=== PATIENT | male | born 1955 | race Caucasian/White ===

== ENCOUNTER 2016-05-25 13:26 | Inpatient (IN) | payer MEDICAID, OTHER ==
[2016-05-25] MEDS ORDERED: NS 0.9% 1000 ML* 3,000 ML IV ONE (13:38)
[2016-05-25] MEDS ORDERED: Albuterol/Ipratropium NEB.SOL* Albuterol 2.5 MG/Ipratropium 0.5 MG 3 ML INH ONE (13:42)
[2016-05-25] MEDS ORDERED: methylPREDNISolone 125 MG* 2 ML VIAL IV ONE (13:43)
--- NOTE | 2016-05-25 14:18 | RAD ---
INDICATION: Pneumonia. Short of breath. COMPARISON: December 13, 2015 TECHNIQUE: PA and lateral dual-energy views were obtained. FINDINGS: Bones/Soft Tissues: There are no acute bony findings. Cardiomediastinal: The cardiomediastinal silhouette is normal. Lungs: There is patchy infiltrative change in the right lower lobe. The remaining lung tomas are clear Pleura: There are no pleural effusions. Other: None IMPRESSION: PATCHY INFILTRATE RIGHT LOWER LOBE. SUGGEST FOLLOW-UP
[2016-05-25 14:29] LABS: FIO2 4
[2016-05-25 14:29] LABS: Hematocrit 47 % (42-52); Hemoglobin 15.5 g/dl (14.0-18.0); Mean Corpuscular HGB Conc 33 g/dl (31-36); Mean Corpuscular Hemoglobin 30 pg (27-31); Mean Corpuscular Volume 90 fL (80-94); Mean Platelet Volume 8 um3 (7.4-10.4); Red Blood Count 5.22 10^6/ul (4.0-5.4); Red Cell Distribution Width 14 % (10.5-15); White Blood Count 22.7 10^3/ul (3.5-10.8)
--- NOTE | 2016-05-25 14:31 | RAD ---
INDICATION: Altered mental status, syncope. COMPARISON: Comparison is made with a prior CT of the brain from May 18, 2014. TECHNIQUE: Contiguous axial sections of the brain were obtained from the skull base to the vertex without contrast. FINDINGS: The ventricles, cisterns and sulci are within normal limits. No significant focal abnormality or mass effect is seen. There is no evidence for hemorrhage. No significant focal osseous abnormality is seen. There is mild mucosal thickening present within both maxillary sinuses. The visualized portion of the paranasal sinuses and mastoid air cells otherwise appear clear. IMPRESSION: NO EVIDENCE FOR GROSS ACUTE INFARCT, MASS EFFECT OR HEMORRHAGE.
[2016-05-25] MEDS ORDERED: cefTRIAXone(*) 1 GM in NS 0.9% 50 ML* 50 ML IVPB ONE (14:39)
[2016-05-25] MEDS ORDERED: Azithromycin IV(*) 500 MG in NS 0.9% 250 ML* 250 ML IVPB ONE (14:40)
[2016-05-25 14:41] LABS: PCO2 Arterial 58 mmHg (35-45)
[2016-05-25 14:45] LABS: ALT 12 U/L (7-52); AST 15 U/L (13-39); Albumin 4.1 g/dL (3.2-5.2); Alkaline Phosphatase 66 U/L (34-104); Anion Gap 8 mmol/L (2-11); BUN/Creatinine Ratio 8.7 (8-20); Blood Urea Nitrogen 14 mg/dL (6-24); CO2 Carbon Dioxide 26 mmol/L (22-32); Calcium 9.2 mg/dL (8.6-10.3); Chloride 100 mmol/L (101-111); Creatine Kinase 89 U/L (10-223); EGFR African American 56.8 (>60); EGFR Non-African American 44.1 (>60); Globulin 3.5 g/dL (2-4); Glucose 230 mg/dL (70-100); Magnesium 2.1 mg/dL (1.9-2.7); Sodium 134 mmol/L (133-145); Total Protein 7.6 g/dL (6.4-8.9)
[2016-05-25 14:46] LABS: Troponin I 0.02 ng/mL (<0.04)
[2016-05-25 15:10] LABS: Acetaminophen < 15 mcg/mL; Alcohol < 10 mg/dL (<10); Salicylate < 2.50 mg/dL (<30)
[2016-05-25 15:17] LABS: TSH (Thyroid Stimulating Horm) 6.33 mcIU/mL (0.34-5.60)
[2016-05-25] MEDS ORDERED: Naloxone* 0.4 MG/ML 1 ML VIAL IV PUSH ONE (15:43)
[2016-05-25] MEDS ORDERED: Naloxone* 0.4 MG/ML 10 ML VIAL ONE (15:45)
[2016-05-25] MEDS ORDERED: Naloxone* 0.4 MG/ML 1 ML VIAL IV PUSH PRN (15:58)
--- NOTE | 2016-05-25 16:09 | ED ---
Eldon Brito Adam, scribed for Jakob Gavin MD on 05/25/16 at 1400 . Complex/Multi-Sys Presentation - HPI Summary HPI Summary: Pt is a 60 year old male presenting with SOB and a possible episode of syncope. EMS reportedly gave narcan x2 and albuterol. Pt states that he was released from senior living today and smoked his first cigarette in years. Afterwards he felt dizzy and thinks he may have passed out. He is unsure who called the ambulance though (possibly his brother) and he states that he does not know the reason why. He currently c/o SOB and he also reports intermittent cough and urgency to urinate. He denies fever, chills, and CP. Pt has PMHx of asthma and COPD. He is not on home o2 but he uses a "puffer." He also has a Hx of HTN and takes Lisinopril and Atenolol. He states that he was receiving his medications and breathing treatments in senior living. He states that he took his BP medications when he got out of senior living today but he denies taking any narcotics. He denies overdosing on pain pills. Pt has been on methodone in the past through Dr. Pittman. - History Of Current Complaint Chief Complaint: EDOverdose Time Seen by Provider: 05/25/16 13:29 Hx Obtained From: Patient Onset/Duration: Gradual Onset, Lasting Hours, Still Present Timing: Constant Severity Currently: Moderate Severity Initially: Moderate Aggravating Factor(s): Smoking first cigarette in years Alleviating Factor(s): Nothing Associated Signs And Symptoms: Positive: SOB, Cough, Other - Urgency to urinate. Negative: Chest Pain, Fever - Allergies/Home Medications Allergies/Adverse Reactions: Allergies Allergy/AdvReac Type Severity Reaction Status Date / Time No Known Allergies Allergy Verified 12/25/15 11:44 PMH/Surg Hx/FS Hx/Imm Hx Endocrine/Hematology History: Denies: Hx Diabetes, Hx Thyroid Disease Cardiovascular History: Reports: Hx Hypertension Denies: Hx Congestive Heart Failure Respiratory History: Reports: Hx Asthma, Hx Chronic Obstructive Pulmonary Disease (COPD) - Emphysema Denies: Other Respiratory Problems/Disorders GI History: Denies: Hx Ulcer, Other GI Disorders History: Denies: Hx Renal Disease, Other Problems/Disorders - Surgical History Surgery Procedure, Year, and Place: Cataract, bilater eyes May 2013. ABDOMINAL STABBING- exploratory sx - Immunization History Date of Tetanus Vaccine: up to date per pt Infectious Disease History: No Infectious Disease History: Reports: Hx Hepatitis - HEP C Denies: Hx Human Immunodeficiency Virus (HIV), History Other Infectious Disease, Traveled Outside the [place] in Last 30 Days - Family History Known Family History: Positive: None Family History: No cardiovascular issues in family - Social History Occupation: Disabled Lives: With Family - Sister Alcohol Use: None Hx Substance Use: Yes Substance Use Comment - Amount & Last Used: HX OF HEROIN, last use 2014 Hx Tobacco Use: Yes Smoking Status (MU): Current Every Day Smoker Type: Cigarettes Amount Used/How Often: 1/2 PPD Length of Time of Smoking/Using Tobacco: 40+ YEARS Have You Smoked in the Last Year: Yes Review of Systems Negative: Fever, Chills Negative: Chest Pain Positive: Shortness Of Breath, Cough Positive: urgency Neurological: Other - Dizziness Positive: Syncope All Other Systems Reviewed And Are Negative: Yes Physical Exam - Summary Physical Exam Summary: The patient appears cyanotic and is not able to answer questions well. The skin is cyanotic and mottled. Skin is cool to the touch. No diaphoresis. HEENT: The head is normocephalic and atraumatic. The pupils are equal and reactive. The conjunctivae are clear and without drainage. Nares are patent and without drainage. Mouth reveals dry oral mucosa. The external ears are intact. The ear canals are patent and without drainage. The tympanic membranes are intact. Neck is supple with full range of motion and non-tender. There are no carotid bruits. There is no neck vein distension. Respiratory: Diminished breath sounds throughout. Rhonchi, wheezing. Hypoxic. Cardiovascular: Heart is regular rate and rhythm. There is no murmur or rub auscultated. There is no peripheral edema and pulses are symmetrical and equal. Abdomen: The abdomen is soft and non-tender. There are normal bowel sounds heard in all four quadrants and there is no organomegaly palpated. Musculoskeletal: There is no back pain noted. Extremities are non-tender with full range of motion. There is good capillary refill. There is no peripheral edema or calf tenderness elicited. Neurological: Patient is alert and oriented to person, place and time but not able to answer questions well. The patient has symmetrical motor strength in all four extremities. Cranial nerves are grossly intact. Deep tendon reflexes are symmetrical and equal in all four extremities. Psychiatric: The patient has an appropriate affect and does not exhibit any anxiety or depression. Triage Information Reviewed: Yes Vital Signs On Initial Exam: Initial Vitals Temp Pulse Resp BP Pulse Ox 96.8 F 122 28 154/99 87 05/25/16 13:28 05/25/16 13:28 05/25/16 13:28 05/25/16 13:28 05/25/16 13:28 Vital Signs Reviewed: Yes Diagnostics - Vital Signs Vital Signs Temp Pulse Resp BP Pulse Ox 05/25/16 13:28 96.8 F 122 28 154/99 87 - Laboratory Lab Results: Lab Results 05/25/16 05/25/16 05/25/16 Range/Units 14:20 14:20 14:20 WBC 22.7 H (3.5-10.8) 10^3/ul RBC 5.22 (4.0-5.4) 10^6/ul Hgb 15.5 (14.0-18.0) g/dl Hct 47 (42-52) % MCV 90 (80-94) fL MCH 30 (27-31) pg MCHC 33 (31-36) g/dl RDW 14 (10.5-15) % Plt Count 207 (150-450) 10^3/ul MPV 8 (7.4-10.4) um3 Neut % (Auto) 88.2 H (38-83) % Lymph % (Auto) 8.0 L (25-47) % [place] % (Auto) 2.7 (1-9) % Eos % (Auto) 0.7 (0-6) % Baso % (Auto) 0.4 (0-2) % Absolute Neuts (auto) 20.0 H (1.5-7.7) 10^3/ul Absolute Lymphs (auto) 1.8 (1.0-4.8) 10^3/ul Absolute Monos (auto) 0.6 (0-0.8) 10^3/ul Absolute Eos (auto) 0.2 (0-0.6) 10^3/ul Absolute Basos (auto) 0.1 (0-0.2) 10^3/ul Absolute Nucleated RBC 0.01 10^3/ul Nucleated RBC % 0 INR (Anticoag Therapy) (0.89-1.11) Patient Temperature ABG pH (7.35-7.45) ABG pCO2 (35-45) mmHg ABG pO2 (80-100) mmHg ABG HCO3 (19-31) mmol/L ABG O2 Saturation (95-98) % ABG Base Excess (-2.0-2.0) Respiration Rate O2 Delivery Device Ventilator Type Vent Mode FiO2 Inspiratory Time PEEP Pressure Support Pressure Control EPAP IPAP BiPAP Sodium 134 (133-145) mmol/L Potassium 5.0 (3.5-5.0) mmol/L Chloride 100 L (101-111) mmol/L Carbon Dioxide 26 (22-32) mmol/L Anion Gap 8 (2-11) mmol/L BUN 14 (6-24) mg/dL Creatinine 1.61 H (0.67-1.17) mg/dL Est GFR ( Amer) 56.8 (>60) Est GFR (Non-Af Amer) 44.1 (>60) BUN/Creatinine Ratio 8.7 (8-20) Glucose 230 H (70-100) mg/dL Lactic Acid 3.4 H* (0.5-2.0) mmol/L Calcium 9.2 (8.6-10.3) mg/dL Magnesium 2.1 (1.9-2.7) mg/dL Total Bilirubin 0.40 (0.2-1.0) mg/dL AST 15 (13-39) U/L ALT 12 (7-52) U/L Alkaline Phosphatase 66 (34-104) U/L Total Creatine Kinase 89 (10-223) U/L Troponin I 0.02 (<0.04) ng/mL B-Natriuretic Peptide ( - 100) pg/mL Total Protein 7.6 (6.4-8.9) g/dL Albumin 4.1 (3.2-5.2) g/dL Globulin 3.5 (2-4) g/dL Albumin/Globulin Ratio 1.2 (1-3) TSH 6.33 H (0.34-5.60) mcIU/mL Salicylates < 2.50 (<30) mg/dL Acetaminophen < 15 mcg/mL Serum Alcohol < 10 (<10) mg/dL 02/17/17 02/17/17 02/17/17 Range/Units 14:20 14:20 14:25 WBC (3.5-10.8) 10^3/ul RBC (4.0-5.4) 10^6/ul Hgb (14.0-18.0) g/dl Hct (42-52) % MCV (80-94) fL MCH (27-31) pg MCHC (31-36) g/dl RDW (10.5-15) % Plt Count (150-450) 10^3/ul MPV (7.4-10.4) um3 Neut % (Auto) (38-83) % Lymph % (Auto) (25-47) % [place] % (Auto) (1-9) % Eos % (Auto) (0-6) % Baso % (Auto) (0-2) % Absolute Neuts (auto) (1.5-7.7) 10^3/ul Absolute Lymphs (auto) (1.0-4.8) 10^3/ul Absolute Monos (auto) (0-0.8) 10^3/ul Absolute Eos (auto) (0-0.6) 10^3/ul Absolute Basos (auto) (0-0.2) 10^3/ul Absolute Nucleated RBC 10^3/ul Nucleated RBC % INR (Anticoag Therapy) 1.26 H (0.89-1.11) Patient Temperature Not Reportable ABG pH 7.23 L (7.35-7.45) ABG pCO2 58 H (35-45) mmHg ABG pO2 35 L* (80-100) mmHg ABG HCO3 20.3 (19-31) mmol/L ABG O2 Saturation 67.3 L (95-98) % ABG Base Excess -4.5 L (-2.0-2.0) Respiration Rate Not Reportable O2 Delivery Device Oxymask Ventilator Type Not Reportable Vent Mode Not Reportable FiO2 4 Inspiratory Time Not Reportable PEEP Not Reportable Pressure Support Not Reportable Pressure Control Not Reportable EPAP Not Reportable IPAP Not Reportable BiPAP Not Reportable Sodium (133-145) mmol/L Potassium (3.5-5.0) mmol/L Chloride (101-111) mmol/L Carbon Dioxide (22-32) mmol/L Anion Gap (2-11) mmol/L BUN (6-24) mg/dL Creatinine (0.67-1.17) mg/dL Est GFR ( Amer) (>60) Est GFR (Non-Af Amer) (>60) BUN/Creatinine Ratio (8-20) Glucose (70-100) mg/dL Lactic Acid (0.5-2.0) mmol/L Calcium (8.6-10.3) mg/dL Magnesium (1.9-2.7) mg/dL Total Bilirubin (0.2-1.0) mg/dL AST (13-39) U/L ALT (7-52) U/L Alkaline Phosphatase (34-104) U/L Total Creatine Kinase (10-223) U/L Troponin I (<0.04) ng/mL B-Natriuretic Peptide 78 ( - 100) pg/mL Total Protein (6.4-8.9) g/dL Albumin (3.2-5.2) g/dL Globulin (2-4) g/dL Albumin/Globulin Ratio (1-3) TSH (0.34-5.60) mcIU/mL Salicylates (<30) mg/dL Acetaminophen mcg/mL Serum Alcohol (<10) mg/dL Result Diagrams: 05/25/16 14:20 05/25/16 14:20 Lab Statement: Any lab studies that have been ordered have been reviewed, and results considered in the medical decision making process. - Radiology CXR Radiology Interpretation Completed By: Radiologist - IMPRESSION: PATCHY INFILTRATE RIGHT LOWER LOBE. SUGGEST FOLLOW-UP. - CT BRAIN CT Interpretation Completed By: Radiologist - IMPRESSION: NO EVIDENCE FOR GROSS ACUTE INFARCT, MASS EFFECT OR HEMORRHAGE. - Additional Comments Diagnostic Additional Comments: ABG pO2 - 35 Lactic Acid - 3.4 Troponin I - 0.02 Complex Multi-Symp Course/Dx Course Of Treatment: pt presents after syncopal event shortly after being released from the [facility]. pt was out for 10-20 minutes. pt had cyanosis and low O2 saturation. pt was revived by the paramedics with Narcan. pt had chest x-ray with RLL infiltrate and 22 WBC. Pt was administered respiratory treatments, steroids and Rocephin and Zithromax. pt was placed on oxygen and adminstered 3 liters of normal saline. - Diagnoses Differential Diagnoses/HQI/PQRI: Aspiration, Cardiac Ischemia, Metabolic Abnormality, Other - head trauma, sepsis, COPD exacerbation, pneumonia, opioid overdose, substance abuse Provider Diagnoses: Pneumonia, Syncope - Physician Notifications Discussed Care Of Patient With: the hospitalist at 14:47. Patient will be admitted. - Critical Care Time Critical Care Time: 30-74 min - 30 minutes Discharge - Discharge Plan Condition: Guarded Disposition: ADMITTED TO [facility] Referrals: Coleman Montague MD [Primary Care Provider] - The documentation as recorded by the Eldon chiang Adam accurately reflects the service I personally performed and the decisions made by , Jakob Gavin MD.
[2016-05-25 16:21] LABS: Urine Bacteria Absent (Absent); Urine Bilirubin Negative (Negative); Urine Glucose 3+(>=500 mg/dL) (Negative); Urine Nitrite Negative (Negative)
[2016-05-25] MEDS ORDERED: NS 0.9% 1000 ML* 1,000 ML IV ONE (16:24)
[2016-05-25 16:29] LABS: Benzodiazepine Urine Screen None Detected (None Detect)
[2016-05-25] MEDS: NS 0.9% 1000 ML* 1,000 ML IV SCH (20:58)
[2016-05-25] MEDS: Heparin VIAL(*) 5000 UNITS/ML VIAL (FIVE THOUSAND) SUBCUT SCH (21:21)
--- NOTE | 2016-05-25 21:27 | HP ---
HISTORY AND PHYSICAL: DATE OF ADMISSION: 05/25/16 PRIMARY CARE PROVIDER: Dr. Montague. CHIEF COMPLAINT: Found down on the floor. HISTORY OF PRESENT ILLNESS: Mr. Vidales is a 60-year-old male who was recently incarcerated and released on the morning of admission and was found down by his brother. At the time of my evaluation, the patient was incredibly somnolent. He would wake up for a matter of seconds and then fall immediately back to sleep. The patient was treated with Narcan x2 by EMS and responded following this. In the emergency room, the patient initially denied utilizing drugs; however, when I informed him that he woke up after receiving Narcan, a narcotic reversal agent, he stated that he would be honest with me and he stated that he took either 30 or 40 mg of methadone this morning. The patient initially told me that he got out of snf on 05/10/16; however, when I spoke to the patient's brother, his brother states that he got out of snf this morning at approximately 8:30. His brother is in disbelief that he already overdosed on methadone. The patient's brother also states that he has a history of IV drug abuse. The patient himself was unable to confirm this. The patient does admit to feeling short of breath and admits to cough. He states that everybody at the snf was sick, but then he is unable to give me anymore details. He states that he has not; however, had any fever or sputum production. PAST MEDICAL HISTORY: 1. Hypertension. 2. Depression. 3. Chronic back and neck pain. 4. BPH. 5. History of opiate addiction. 6. History of hepatitis C, status post Harvoni treatment. PAST SURGICAL HISTORY: Unknown. MEDICATIONS: Per report from ID followup, August 2015: 1. Atenolol 100 mg p.o. daily. 2. Cymbalta 60 mg p.o. daily. 3. Valsartan 80 mg p.o. daily. 4. Methadone 20 mg p.o. q.a.m., 30 mg p.o. q.p.m. 5. Albuterol 2 puffs inhaled q.4 hours p.r.n. shortness of breath. It is unclear if the patient has been taking any of these while in snf. ALLERGIES: No listed drug allergies. FAMILY HISTORY: Unobtainable from the patient due to somnolence. SOCIAL HISTORY: Unobtainable from the patient, though his brother does state that he smokes and smoked immediately upon exiting snf as well as abused narcotics orally and possibly through intravenous administration. The patient is able to tell me; however, that his sister, Christelle, phone number [phone]. The patient's brother, Nuno, who is present during part of my evaluation, his phone number is [phone]. REVIEW OF SYSTEMS: Unobtainable due to the patient being somnolent. PHYSICAL EXAMINATION GENERAL: The patient is a well-developed middle-aged male who is somnolent but arousable, but promptly falls back asleep in no acute distress. VITAL SIGNS: Blood pressure 154/99, pulse 122, respirations 28, temperature 96.8, O2 sat is 87% on 3 L. HEENT: Pupils are pinpoint. Extraocular muscles intact. Oropharynx is clear. Oral mucosa is moist. There is no submandibular, cervical, or supraclavicular adenopathy. NECK: Thyroid is not enlarged. No thyroid nodules are noted. PULMONARY: The patient gives poor effort, but his lungs sound to be clear. CARDIAC: Normal S1, S2. Heart rate is tachycardic, but regular. ABDOMEN: Bowel sounds present. Abdomen is soft, nontender, nondistended. MUSCULOSKELETAL: There is no cyanosis or clubbing of the digits. There is full active range of motion of the upper extremities. Lower extremities, the patient moves spontaneously, but does not do full range of motion with these. SKIN: Warm and dry. There are no rashes. There are puncture wounds in the left antecubital fossa; however, the patient was noted to be a difficult stick in the emergency room. It is unclear if these represent home attempts at intravenous access. PSYCH: The patient is very somnolent. He repeats himself several times during the evaluation. LABORATORY DATA: WBC 22.7, hemoglobin 15.5, hematocrit 47, platelets 207, INR 1.26; pH 7.23, pCO2 of 58, PO2 of 35 on 4 L FIO2. Sodium 134, potassium 5.0, chloride 100, CO2 of 26, BUN 14, creatinine 1.61, glucose 230, lactic acid 3.4, calcium 9.2, magnesium 2.1. Bilirubin 0.4, AST 15, ALT 12, alk phos 66, CPK 89 , troponin 0.02. BNP 78. Albumin 4.1. TSH 6.33. Salicylates negative. Tylenol less than 15. Serum alcohol less than 10. ASSESSMENT AND PLAN: Mr. Vidales is a 60-year-old male with a history of opiate abuse, hypertension, depression and history of chronic back and neck pain who presents to the emergency room after being found unresponsive at home, though responding to Narcan consistent with narcotic overdose. 1. Narcotic overdose: The patient ultimately told me he took methadone on the morning of admission. He states that he took 30 to 40 mg. He was very untruthful for the first several times I asked him. A urine drug screen is pending. The patient has required an additional dose of Narcan after my evaluation due to him having periods of apnea. He will be admitted to the intensive care unit with p.r.n. Narcan available. If the patient continues to receive Narcan doses, we will need to start a Narcan drip. The patient will need drug rehab. He has previously been referred to [facility]. A social work evaluation will be requested. 2. Right lower lobe pneumonia: The patient on chest x-ray appears to have a right lower lobe pneumonia. He does admit to cough and shortness of breath at times during his evaluation. Additionally, he has been hypoxic and his ABG is quite concerning. The patient's hypoxia; however, could also be related to apnea from his narcotic overdose. The plan will be to continue ceftriaxone and azithromycin. As the patient was recently incarcerated in the snf, he is at risk for influenza as well as possibly Legionella. We will go ahead and send a flu swab as well as Legionella and strep pneumoniae urinary antigens. Additionally, this is a right lower lobe infiltrate. Perhaps, this represents an aspiration pneumonia, especially given his reduced mental status. The patient's O2 saturations and respiratory status will be monitored closely in the intensive care unit. 3. Hypertension: At this time, the patient is actually hypotensive. His blood pressure has been all over the place in the emergency room. He is receiving 1 L normal saline bolus and then will be continued on normal saline at 100 mL per hour. I am going to hold atenolol and valsartan, which the patient was reportedly taking back in August 2015 until I see where his blood pressure settles out. 4. Depression: I am going to hold his Cymbalta for now. He will need to follow up with his primary care provider. 5. DVT prophylaxis: According to the Adult Thrombosis Prophylaxis Risk Factor Assessment Guide, the patient has a total risk factor score of 2 making him moderate risk. He will be placed on heparin 5000 units subcutaneous q.12 hours. 6. Code status is full as the patient is unable to tell me what his wishes are. TIME SPENT: Sixty five minutes was spent admitting this patient. CC: Dr. Montague* [id number]/CPS #: [id number] RUPERT
--- NOTE | 2016-05-26 01:46 | PN ---
Progress Note - Progress Note Note: Spoke with patient who is completely alert and oriented. He denies any suicide attempt and says he took the methodone in an attempt to alleviate his intense pain. He had been in long term for 28 days and had not been on his medication for awhile so he naive to it. Restarting at a high dose was likely too much for him. I do not believe this was a suicide attempt and I will discontinue the one to one.
[2016-05-26 07:20] LABS: BUN/Creatinine Ratio 19.3 (8-20); Calcium 8.9 mg/dL (8.6-10.3); EGFR African American 61.6 (>60); EGFR Non-African American 47.9 (>60); Potassium 4.7 mmol/L (3.5-5.0)
[2016-05-26 07:21] LABS: Hematocrit 39 % (42-52); Hemoglobin 12.8 g/dl (14.0-18.0); Mean Corpuscular HGB Conc 33 g/dl (31-36); Mean Corpuscular Hemoglobin 30 pg (27-31); Mean Corpuscular Volume 90 fL (80-94); Mean Platelet Volume 8 um3 (7.4-10.4); Red Blood Count 4.29 10^6/ul (4.0-5.4); Red Cell Distribution Width 14 % (10.5-15); White Blood Count 17.3 10^3/ul (3.5-10.8)
[2016-05-26] MEDS ORDERED: Acetaminophen TAB* 325 MG PO PRN (10:04)
[2016-05-26] MEDS ORDERED: Ibuprofen TAB* 600 MG PO PRN (10:04)
[2016-05-26] MEDS ORDERED: Albuterol HFA INHALER* 8 gm MDI INH PRN (10:07)
--- NOTE | 2016-05-26 10:10 | PN ---
Subjective Date of Service: 05/26/16 Interval History: Patient seen this morning. Confirmed story of trying to restart on his home methadone for pain as he was not prescribed any in long-term. He took a larger dose than usual to try to relieve pain, not an attempted overdose. Says he feels congested while breathing and has had a cough productive of green/brown sputum. Family History: Unchanged from Admission Social History: Unchanged from Admission Past Medical History: Unchanged from Admission Objective Active Medications: Gabapentin (Neurontin Cap(*)) 300 mg PO TID [facility] Heparin Sodium (Porcine) (Heparin Vial(*)) 5,000 units SUBCUT Q12HR [facility]ARON Ceftriaxone Sodium 1,000 mg/ (Sodium Chloride) 50 mls @ 200 mls/hr IVPB Q24H [facility]ON Azithromycin 500 mg/ Sodium (Chloride) 250 mls @ 250 mls/hr IVPB Q24H [facility]ARON Sodium Chloride (Ns 0.9% 1000 Ml*) 1,000 mls @ 100 mls/hr IV PER RATE [facility] Lidocaine (Lidoderm 5% Patch*) 1 patch TRANSDERM .ON 0900 OFF AT 2100 [facility] Naloxone HCl (Narcan*) 0.4 mg IV PUSH .Q30MIN PRN Pharmacy Profile Note (Lidocaine Patch Remove*) 1 note N/A 2100 [facility] Vital Signs 05/25/16 05/25/16 05/25/16 15:40 15:43 15:47 Temperature Pulse Rate 80 81 81 Respiratory 18 15 Rate Blood Pressure 82/54 85/67 95/67 (mmHg) O2 Sat by Pulse 95 92 95 Oximetry 05/25/16 05/25/16 05/25/16 20:30 20:45 21:00 Temperature 98.4 F 98.4 F 98.7 F Pulse Rate 65 65 66 Respiratory 11 11 20 Rate Blood Pressure 103/57 95/63 114/65 (mmHg) O2 Sat by Pulse 96 96 94 Oximetry 05/25/16 05/25/16 05/25/16 21:15 21:30 22:00 Temperature 99.0 F 99.1 F 99.5 F Pulse Rate 64 66 67 Respiratory 12 12 15 Rate Blood Pressure 100/57 104/66 (mmHg) O2 Sat by Pulse 96 96 91 Oximetry 05/26/16 07:55 Temperature 97.7 F Pulse Rate 82 Respiratory 18 Rate Blood Pressure 154/78 (mmHg) O2 Sat by Pulse 97 Oximetry Oxygen Devices in Use Now: Nasal Cannula - 4L Appearance: Middle-aged, M, appears older than stated age, sitting in bed in NAD Eyes: No Scleral Icterus Ears/Nose/Mouth/Throat: Mucous Membranes Moist Neck: NL Appearance and Movements; NL JVP Respiratory: Symmetrical Chest Expansion and Respiratory Effort, - - Scattered ronchi throughout R lung along with some mild wheezing, left lung clear to ausculation, Cardiovascular: NL Sounds; No Murmurs; No JVD, RRR Abdominal: NL Sounds; No Tenderness; No Distention Lymphatic: No Cervical Adenopathy Extremities: No Edema Skin: No Rash or Ulcers Neurological: Alert and Oriented x 3 Result Diagrams: 05/26/16 06:35 05/26/16 06:35 Microbiology and Other Data: Microbiology 05/25/16 17:20 Nasal Screen MRSA (PCR)(ELENI) - Final Nasal Mrsa Negative 05/25/16 15:58 Legionella Urinary Antigen - Final Urine Negative Legionella Streptococcus pneumoniae Ag Screen - Final Negative S. pneumo Antigen 05/25/16 16:05 Influenza Types A,B Antigen (ELENI) - Final Nasal Specimen received for Influenza A/B Molecular testing Assess/Plan/Problems-Billing Assessment: Unintentional overdose, hypoxic and hypercarbic respiratory failure, CAP in a 60 yo M with hx of HTN, COPD, drug abuse, chronic back pain - Patient Problems (1) Overdose of opiate or related narcotic Current Visit: Yes Comment: Unintentional. Patient is awake and alert now, no further narcan needed. Holding methadone and any narcotics (2) Pneumonia Current Visit: Yes Comment: Continue CTX and Azithromycin. Wean oxygen as tolerated. Leukocytosis improving. (3) STAS (acute kidney injury) Current Visit: Yes Comment: Creatinine improving, continue IVF (4) HTN (hypertension) Current Visit: Yes Comment: BPs have been labile, if remains elevated will restart Atenolol (5) Chronic pain Current Visit: Yes Comment: Will not restart any opioids. Start gabapentin and lidoderm. Will also write prn tylenol and ibuprofen (6) DVT prophylaxis Current Visit: Yes Comment: HSQ
[2016-05-26] MEDS ORDERED: Lidocaine PATCH 5%* 1 PATCH TRANSDERM SCH (11:00)
[2016-05-26] MEDS: Heparin VIAL(*) 5000 UNITS/ML VIAL (FIVE THOUSAND) SUBCUT SCH ×2 (11:09→23:47)
[2016-05-26] MEDS: Gabapentin CAP(*) 300 MG PO SCH ×3 (11:09→23:45)
[2016-05-26] MEDS ORDERED: cefTRIAXone VIAL(*) 1,000 MG in NS 0.9% 50 ML* 50 ML IVPB SCH (15:00)
[2016-05-26] MEDS ORDERED: Azithromycin IV(*) 500 MG in NS 0.9% 250 ML* 250 ML IVPB SCH (16:00)
[2016-05-26] MEDS ORDERED: Lidocaine Patch REMOVE* 1 NOTE MISC SCH (21:00)
[2016-05-26] MEDS: NS 0.9% 1000 ML* 1,000 ML IV SCH (23:44)
[2016-05-27 07:00] LABS: Hematocrit 37 % (42-52); Hemoglobin 12.3 g/dl (14.0-18.0); Mean Corpuscular HGB Conc 33 g/dl (31-36); Mean Corpuscular Hemoglobin 30 pg (27-31); Mean Corpuscular Volume 90 fL (80-94); Mean Platelet Volume 8 um3 (7.4-10.4); Red Blood Count 4.09 10^6/ul (4.0-5.4); Red Cell Distribution Width 15 % (10.5-15); White Blood Count 12.5 10^3/ul (3.5-10.8)
[2016-05-27 07:16] LABS: Calcium 8.6 mg/dL (8.6-10.3); EGFR African American 115.5 (>60); EGFR Non-African American 89.8 (>60); Potassium 4.1 mmol/L (3.5-5.0)
--- NOTE | 2016-05-27 07:21 | PN ---
Progress Note - Progress Note Note: Pt's BP elevated in the 170's systolic. Will start amlodipine 5mg daily and not atenolol as his HR is in the 60's.
[2016-05-27] MEDS: amLODIPine TAB* 5 MG PO SCH ×2 (07:50→07:53)
[2016-05-27] MEDS: Heparin VIAL(*) 5000 UNITS/ML VIAL (FIVE THOUSAND) SUBCUT SCH (07:50)
[2016-05-27] MEDS: Gabapentin CAP(*) 300 MG PO SCH ×2 (07:50→13:11)
[2016-05-27] MEDS ORDERED: Lisinopril TAB* 10 MG PO SCH (09:00)
[2016-05-27] MEDS ORDERED: Atenolol TAB* 50 MG PO SCH (09:00)
[2016-05-27 10:21] VITALS: BP 173/98
--- NOTE | 2016-05-27 10:27 | DCNOTE ---
Patient seen this morning. Reports cough is beginning to break up. Still feels some congestion. Weaned off of oxygen, ambulated around the unit with no desaturation. On exam, lungs relatively clear, no wheezing, RRR, s1 and s2 present, no m/g/r, abd soft, NTND, BS+. Repeat SBP in 170s. Will discharge home on PO antibiotics. Also will rx gabapentin and lidoderm patch. Told patient to stop taking methadone and f/u with PCP about pain control and with surgeons in [place] he has been seeing.
--- NOTE | 2016-05-28 03:45 | DS ---
DISCHARGE SUMMARY: DATE OF ADMISSION: 05/25/16 DATE OF DISCHARGE: 05/27/16 PRIMARY CARE PHYSICIAN: Dr. Montague. PRINCIPAL DISCHARGE DIAGNOSES: 1. Unintentional methadone overdose. 2. Community-acquired pneumonia. SECONDARY DIAGNOSES: 1. Hypertension. 2. Depression. 3. Chronic pain. 4. BPH. 5. History of opiate addiction. DISCHARGE MEDICATION REGIMEN: 1. Gabapentin 300 mg by mouth 3 times daily. 2. Cefpodoxime 200 mg by mouth 2 times daily. 3. Azithromycin 500 mg by mouth daily. 4. Albuterol inhaler 1 puff inhaled every 4 hours as needed for shortness of breath or wheezing. 5. Lidoderm 5% one patch transdermal every 12 hours. 6. Atenolol 100 mg by mouth daily. 7. Lisinopril 20 mg by mouth daily. 8. Acetaminophen 650 mg by mouth every 4 hours as needed for pain. STUDIES DONE DURING HOSPITALIZATION: Chest x-ray, impression: Patchy infiltrate, right lower lobe, suggest followup. CT of the brain without contrast, impression: No evidence for gross acute infarct, mass effect, or hemorrhage. HISTORY OF PRESENT ILLNESS AND HOSPITAL SUMMARY: Please see the full history and physical by Dr. Tawnya Sanchez for full details. Briefly, Mr. Vidales is a 60 -year- old male with past medical history as above, who [facility] of admission and was found unresponsive by his brother after he took some old methadone that was around his house for his back pain. He states he had been on it in the past and had not received any while in [facility] and his back pain had been worsening. He took a little bit of a bigger dose than he was on before and within the next few hours, became more and more lethargic and unresponsive. The patient was brought to the emergency room and responded to Narcan. Narcan drip was not needed. He was also noted to have a significant leukocytosis and evidence of pneumonia on chest x-ray. He was started on IV antibiotics. He initially required supplemental oxygen; however, this improved and he was able to be weaned off. He was not given any further opioids here in the hospital. His leukocytosis improved. He had some mild renal dysfunction that also resolved with IV fluids. He was weaned off oxygen. He still had a significant productive cough on the day of discharge; however, he remained afebrile and his white count had just about normalized. He will be sent on home on oral antibiotics to complete a course of therapy as an outpatient. He was also given gabapentin and Lidoderm for his back pain and encouraged to follow up with his PCP and with his previous surgeons in [place]. The patient was instructed not to take any further narcotics unless prescribed currently by a physician. He may benefit from referral back to the pain clinic. The patient' s blood pressure medications were initially held; however, the day prior to and the day of discharge, he became hypertensive. He was given a dose of amlodipine and lisinopril the day of discharge and he could resume his home atenolol and lisinopril the day after discharge. TIME SPENT: Total time spent on this discharge 45 minutes. This is a summary of the hospitalization, please see the full medical record for further details. CC: Dr. Montague * [id number]/[facility] #: [id number] MTDVaibhav
== END 2016-05-27 13:20 | disposition home or self-care (01) | DRG 812 ==
LOC: ED 13:26 → ICU 15:33 → MED 05-26 03:32
PROVIDERS: ADMIT Hospitalist; ATTEND Hospitalist
DX: T40.3X1A Poisoning by methadone, accidental (unintentional), initial encounter (principal); J18.8 Other pneumonia, unspecified organism; N17.9 Acute kidney failure, unspecified; Y92.89 Other specified places as the place of occurrence of the external cause; I10 Essential (primary) hypertension; F32.9 Major depressive disorder, single episode, unspecified; G89.29 Other chronic pain; N40.0 Benign prostatic hyperplasia without lower urinary tract symptoms; Z79.899 Other long term (current) drug therapy; F17.210 Nicotine dependence, cigarettes, uncomplicated
CPT/HCPCS: 36415; 36600; 70450; 71010; 80048; 80053; 80307; 80320; 80329; 81003; 81015; 82550; 82803; 83605; 83735; 83880; 84443; 84484; 85025; 85610; 87040; 87070; 87205; 87502; 87522; 87641; 87899; 94640; 94760; A9270-GY; G0480; J0456; J0696; J1644; J2310; J2930

== ENCOUNTER 2016-08-08 12:44 | Emergency (ER) | payer OTHER ==
[2016-08-08] MEDS ORDERED: EPINEPHrine SYR 0.1 MG/ML* (1:10,000) SYRINGE ONE (12:45)
[2016-08-08] MEDS ORDERED: Sodium Bicarbonate 8.4% SYR* 10 ML SYRINGE ONE (12:51)
[2016-08-08] MEDS ORDERED: Naloxone* 0.4 MG/ML 1 ML VIAL ONE (12:54)
[2016-08-08] MEDS ORDERED: Dextrose 50% Syringe 50 ML* 25 GM/50 ML SYRINGE ONE (12:55)
[2016-08-08] MEDS ORDERED: Naloxone* 0.4 MG/ML 10 ML VIAL ONE (12:59)
[2016-08-08 14:43] VITALS: BP 0/0
--- NOTE | 2016-08-08 18:06 | ED ---
Michael Brito Billy, scribed for Austen Mehta MD on 08/08/16 at 1321 . Cardiac Resuscitation - HPI Summary HPI Summary: This is a 60 year-old male BIBA to [facility] after a witnessed fall today. Patient was asystolic with agonal respirations at the time EMS arrived on scene. No significant signs of trauma. Patient was immediately given 2x Narcan IM with no response. They were unable to intubate the patient. He was also given 3x epinephrine, 2x amiodarone, and 1x bicarb. [place] and syringes were found in his backpack. CPR had been administered for 27 minutes prior to EMS arrival. He arrived to the ED on Autopulse. CPR continued for 20 minutes after EMS arrival with no ROSC. Per law enforcement, patient has a long-standing history of heroin abuse. - History of Current Complaint Stated Complaint: POSS ABC Time Seen by Provider: 08/08/16 12:44 Hx Obtained From: EMS Hx From Patient Unobtainable Due To: Extremis Onset/Duration: Minutes/Hours: - CPR by EMS for 27 minutes prior to arrival at the ED Arrest Witnessed: Yes - Additional Pertinent History Primary Care Physician: [id number] - Allergies/Home Medications Allergies/Adverse Reactions: Allergies Allergy/AdvReac Type Severity Reaction Status Date / Time No Known Allergies Allergy Verified 12/25/15 11:44 - Past Medical History Past Medical History: Unobtainable Due to Extremis - Family History Family History: Unobtainable Due to Extremis - Social History Social History: Unobtainable Due to Extremis - Review of Systems Review of Systems: Unobtainable Due to Extremis Physical Examination - Physical Examination Completion Of Physical Exam Limited Due To: Extremis Resuscitation Termination Time: 12:59 Resuscitation: Unsuccessful Physical Exam Additional Comments: Patient was pulseless, apneic, and arrived with autopulse in place. BVM airway, IO line left leg, left EJ line. Pupils were fixed at 6mm. ED intervention was unsuccessful. - ED Findings Airway: Gag Reflex Absent Breathing: Apnea Circulation/Rhythm: Asystole, Spontaneous Pulses Absent Disability/Neurological: Unresponsive - ED Intervention Breathing: Intubation: - by Александр De La Vega NP Circulation/Rhythm: Chest Compressions, Defibrillation:, Epinephrine: - ED Response Airway: Gag Reflex Absent Breathing: Placement Confirmed by Auscultation Circulation/Rhythm: Asystole, Spontaneous Pulses Absent - Glascow Coma Score Eye Openin - None Motor: 1 - None Verbal: 1 - Intubated Coma Scale Total: 3 T Cardiac Resus. Course/Dx - Diagnoses Provider Diagnoses: Cardiopulmonary arrest, Heroin abuse During the Visit The Following Alert/Code Occurred: ABC Alert - at 1230, prior to arrival - Provider Notifications Discussed Care Of Patient With: Dr. Davidson at 1315: requested that the body be held in the morgue. Dr. Montague at 1345: was made aware of the patient's disposition. Discharge - Discharge Plan Condition: Disposition: Referrals: Coleman Montague MD [Primary Care Provider] - The documentation as recorded by the Michael chiang Billy accurately reflects the service I personally performed and the decisions made by , Austen Mehta MD.
--- NOTE | 2016-08-08 21:40 | PRO ---
DATE OF PROCEDURE: 08/08/16 - EMERGENCY DEPT DATE OF : 57 SERVICE: Critical Care Medicine. LOCATION OF PROCEDURE: ER. PROCEDURE PERFORMED: Endotracheal intubation. PROCEDURALIST: David Andrade NP and Dr. Mace supervised. CONSENT OBTAINED: No, procedure performed emergently. TIME-OUT HELD: Not indicated. INDICATION: Cardiac arrest. PROCEDURE IN DETAIL: Oxygen was maintained and vitals were monitored. The patient was receiving the CPR while intubation performed. He was in the supine position. The patient was not premedicated as it was done emergently; he was nonresponsive. A #3 GlideScope was inserted with a grade I view. There was secretion suctioned to improve the view. A 8.0 endotracheal tube was inserted to 24 at the lip. He had good chest rise, breath sounds were appreciated bilaterally. No breath sounds heard over the abdomen. End-tidal CO2 was 28 and he had positive color change. The patient ended up expiring despite successful intubation. Again, he was at cardiac arrest and brought into the ER and found down in the community. DAVID ANDRDAE NP [id number]/[facility] #: [id number] MTDVaibhav
== END 2016-08-08 12:47 | disposition expired ==
LOC: ED 12:44
DX: I46.9 Cardiac arrest, cause unspecified (principal); F11.10 Opioid abuse, uncomplicated
CPT/HCPCS: 92950; 99285; J0171; J2310